=== PATIENT | female | born 1965 | race Caucasian/White ===

== ENCOUNTER 2021-02-11 07:40 | Outpatient (REF) | payer OTHER, SELFPAY ==
--- NOTE | ~2021-02-11 | MM_ITS ---
EXAMINATION: MM SCREENING DIGITAL BREAST TOMOSYNTHESIS, BILATERAL CLINICAL INFORMATION: Screening. Asymptomatic. The lifetime risk of breast cancer based on the Tyrer-Cuzick Model is 8.0%. COMPARISON: Mammography: February 06, 2020 and studies dating back to June 10, 2013 TECHNIQUE: Digital breast tomosynthesis is performed in both the craniocaudal and mediolateral oblique views along with computer-aided detection (CAD). Synthesized 2D images are generated from the tomosynthesis. FINDINGS: The breasts are heterogeneously dense, which may obscure small masses (ACR BI-RADS breast composition Category c). There are no significant masses, abnormal calcifications, or other abnormalities. MM/MM tomosynthesis screening BI IMPRESSION: There are no significant changes from prior study. ASSESSMENT: BI-RADS 1: Negative RECOMMENDATION: Routine annual mammography screening. This patient's information was entered into a reminder system with a target due date for their next mammogram.
== END 2021-02-11 07:41 | disposition home or self-care (01) ==
LOC: HO.MAMMO 07:40
PROVIDERS: PCP Internal Medicine; Visit Provider Internal Medicine
DX: Z12.31 Encounter for screening mammogram for malignant neoplasm of breast (principal)
CPT/HCPCS: 77063; 77067

== ENCOUNTER 2022-02-17 07:51 | Outpatient (REF) | payer OTHER, SELFPAY ==
--- NOTE | ~2022-02-17 | MM_ITS ---
EXAMINATION: MM SCREENING DIGITAL BREAST TOMOSYNTHESIS, BILATERAL CLINICAL INFORMATION: Screening. Asymptomatic. The lifetime risk of breast cancer based on the Tyrer-Cuzick Model is 8%. COMPARISON: Mammography: 02/11/2021, 911, 01/31/2019 TECHNIQUE: Digital breast tomosynthesis is performed in both the craniocaudal and mediolateral oblique views along with computer-aided detection (CAD). Synthesized 2D images are generated from the tomosynthesis. FINDINGS: There are scattered areas of fibroglandular density (ACR BI-RADS breast composition Category b). There are no significant masses, abnormal calcifications, or other abnormalities. Parenchymal pattern is similar to prior studies. There is no developing density or architectural abnormality. The axilla and skin contours are unremarkable. No significant changes. MM/MM tomosynthesis screening BI IMPRESSION: No mammographic evidence of malignancy. ASSESSMENT: BI-RADS 1: Negative RECOMMENDATION: Routine annual mammography screening. This patient's information was entered into a reminder system with a target due date for their next mammogram.
== END 2022-02-17 07:52 | disposition home or self-care (01) ==
LOC: HO.MAMMO 07:51
PROVIDERS: PCP Internal Medicine; Visit Provider Internal Medicine
DX: Z12.31 Encounter for screening mammogram for malignant neoplasm of breast (principal)
CPT/HCPCS: 77063; 77067

== ENCOUNTER → 2023-02-23 08:00 | Outpatient (BNV) | payer OTHER, SELFPAY | PROVIDERS: PCP Internal Medicine; Visit Provider Radiology Diagnostic Radiology | DX: Z12.31 Encounter for screening mammogram for malignant neoplasm of breast (principal) | CPT/HCPCS: 77063; 77067 ==

== ENCOUNTER 2023-02-23 08:04 | Outpatient (REF) | payer OTHER, SELFPAY | END 2023-02-23 08:05 | disposition home or self-care (01) | LOC: HO.MAMMO 08:04 | PROVIDERS: PCP Internal Medicine; Visit Provider Internal Medicine | DX: Z12.31 Encounter for screening mammogram for malignant neoplasm of breast (principal) | CPT/HCPCS: 77063; 77067 ==

== ENCOUNTER 2024-02-29 08:00 | Outpatient (REF) | payer OTHER, SELFPAY ==
--- NOTE | ~2024-02-29 | MM_ITS ---
EXAMINATION: MM SCREENING DIGITAL BREAST TOMOSYNTHESIS, BILATERAL CLINICAL INFORMATION: Screening. Asymptomatic. COMPARISON: Mammography: Comparison is made with available priors TECHNIQUE: Digital breast mammography with tomosynthesis is performed in both the craniocaudal and mediolateral oblique views along with computer-aided detection (CAD). FINDINGS: The breasts are heterogeneously dense, which may obscure small masses (ACR BI-RADS breast composition Category c). There are no significant masses, abnormal calcifications, or other abnormalities. MM/MM tomosynthesis screening BI IMPRESSION: No mammographic evidence of malignancy. ASSESSMENT: BI-RADS BI-RADS 1 - Negative RECOMMENDATION: Routine annual mammography screening. 1 year F/U This examination should not preclude the clinical evaluation of a suspicious palpable abnormality. This patient's information was entered into a reminder system with a target due date for their next mammogram. Electronically signed by: Shannan Paez DO 03/12/2024 12:38 PM EDT
== END 2024-02-29 08:01 | disposition home or self-care (01) ==
LOC: HO.MAMMO 08:00
PROVIDERS: PCP Internal Medicine; Visit Provider Internal Medicine
DX: Z12.31 Encounter for screening mammogram for malignant neoplasm of breast (principal)
CPT/HCPCS: 77063; 77067

== ENCOUNTER → 2024-02-29 08:00 | Outpatient (BNV) | payer OTHER, SELFPAY | PROVIDERS: PCP Internal Medicine; Visit Provider Internal Medicine | DX: Z12.31 Encounter for screening mammogram for malignant neoplasm of breast (principal) | CPT/HCPCS: 77063; 77067 ==

== ENCOUNTER 2024-10-23 09:45 | Outpatient (AMB) | payer OTHER, SELFPAY ==
--- NOTE | 2024-10-23 09:47 | A.OFFPC_ITS ---
Vital Signs 10/23/24 10:19 Height 5 ft 1 in Weight 115 lb 6 oz BMI 21.8 BP 124/70 Blood Pressure Location Lt brachial Position Sitting Respiration 13 Pulse 72 Pulse Source Pulse Oximeter Temp 97.4 F Temp Source Oral Pulse Oximetry (%) 97 Oxygen Delivery Method Room Air Intake Visit Reasons: est care Intake Note: New patient to establish care. Slack Cooper Required: No Allergies No Known Allergies Allergy (Verified 10/23/24 09:49) Medication List - Last Reconciled 10/23/24 by Tonja Julio [facility]- budesonide 90 mcg/actuation (Pulmicort Flexhaler) 0 inhalations inhalation estradiol 0.01%(0.1mg/gram) vaginal levalbuterol tartrate 45 mcg/actuation inhalation metoprolol succinate ER 25 mg PO DAILY omeprazole 40 mg PO DAILY paroxetine HCl 20 mg PO DAILY phenytoin 50 mg PO BID simvastatin 20 mg PO BEDTIME trospium 20 mg PO BID Tobacco use date assessed: 10/23/24 Dental Screening Dental Screen Date: 10/23/24 Did you have a dental visit in the last 12 months?: Yes Did you have a dental problem in the last 6 months where you did not have access to dental care?: No Was dental information given to patient?: Patient has dentist HPI HPI Comments History of Present Illness Details 59 y/o F with paraesophageal hernia, pre diabetes (a1c 5.7% 06/2024), leukopenia chronic, EMIR, colon polyps, dermatitis, allergic rhinits, mild intermittent asthma (PFT 2023), developmental delay, GERD, HLD, HTN, Overactive bladder, LBBB, menopausal, Seizure disorder, family hx colon ca (mom) s/p bladder sling 2017 Fhx: Mom colon ca age 66, PA; Dad prostate Ca, [place], Brother prostate ca Health Maintenance: Colon 02/2020 repeat 3 years, 11/2023 + polyps EGD 11/2023 hiatal hernia Pap 2021 repeat 2025 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 Previous PCP: [facility], records reviewed. Colon November 2024 @ [facility] - Asthma: Managed with Pulmocort and lev othylbuterol. - Seizure Disorder: Controlled with phen ytoin. Needs new neuro referral, old one retired. - GERD: Managed with omeprazole. - Hyperlipidemia: Treated with simvastat in. - Hypertension: Controlled with metoprol ol. - Vaginal Atrophy: Managed with estradio l. - Allergic Rhinitis: Nasacort provides s ome relief; Claritin effective. - Overactive Bladder:Not Managed with tr ospium; urge incontinence noted. S/p bladder sling and botox tx. - Depression: Treated with paroxetine; m ood varies seasonally. would like counseling, denies si/hi. Review of Systems - Respiratory: Reports asthma managed wi th inhalers. - Neurological: Reports seizure disorder controlled with medication. - Gastrointestinal: Reports GERD control led with omeprazole. - Cardiovascular: Reports essential hype rtension managed with medication. - Genitourinary: Reports overactive blad daniel symptoms. - Dermatological: Denies any new skin ra shes or lesions. - Psychiatric: Reports depression with s easonal mood variations. - Endocrine: Denies any new thyroid issu es. - Allergy/Immunology: Reports allergic r hinitis with seasonal exacerbation. Exam Awake alert NAD Glasses Turbinates pale, scant yellow d/c in nares RRR LS with faint exp wheeze througout Mood and affect appropriate Discussion Notes I discussed with the patient the management of her chronic conditions including asthma, seizure disorder, GERD, hyperlipidemia, hypertension, vaginal atrophy, allergic rhinitis, overactive bladder, and depression. We reviewed the current medication regimen and its effectiveness. For her allergic rhinitis, I recommended trying Azesteline nasal spray due to its specificity for allergies. For overactive bladder symptoms, I proposed Gemtesa as a potential alternative, noting the need for prior authorization. The importance of maintaining appointments for preventive care, such as the upcoming colonoscopy, was emphasized. The patient was also instructed on using the patient portal for convenient communication with the office. We discussed follow-up care and the need for regular monitoring of her conditions. Assessment and Plan 1. Asthma - Continue Pulmocort and levothylbuterol . 2. Seizure Disorder - Continue phenytoin. - Neurology referral. 3. GERD - Continue omeprazole. 4. Hyperlipidemia - Continue simvastatin. - Cholesterol panel in December. 5. Essential Hypertension - Continue metoprolol. 6. 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 Allergic Rhinitis - Azesteline nasal spray prescribed. - Continue Claritin as needed. 8. Overactive Bladder - Start Gemtesa pending prior authorizat ion. - Continue trospium until approved. 9. Depression - Continue paroxetine. - Counseling referral placed. Patient Instructions - Continue all current medications as pr escribed. - Use Azesteline nasal spray for allergi c rhinitis. - Monitor symptoms and report any change s. - Use the patient portal for communicati on with the office. - Attend scheduled colonoscopy appointme nt. - Follow up with neurology and for futur e lab work as advised. RTO for CPE with labs in Dec, PRN Consent Patient was informed and verbally consented to the use of an ambient scribe for clinic note documentation during this visit. Total time spent caring for the patient today was 45 minutes. This includes time spent before the visit reviewing the chart, time spent during the visit, and time spent after the visit on documentation, reviewing laboratory results, diagnostic imaging, medications, performing a medically necessary evaluation, counseling on diagnoses, care coordination, ordering appropriate tests, ordering appropriate medications, review of tests performed by other providers, reporting test results with the patient, communication with other healthcare providers. [facility] Medical History (Updated 10/23/24 @ 11:00 by ITARA Hall-NANCY) Anxiety Arthritis Asthma Epilepsy GERD (gastroesophageal reflux disease) High cholesterol Incontinence Seizure Sinusitis Surgical History (Updated 10/23/24 @ 07:08 by TIARA Hall-NANCY) History of bladder surgery (~2017) History of colonoscopy (~2023) Family History (Updated 10/23/24 @ 10:30 by Helen Hair MA) Sister Asthma HTN (hypertension) Brother Asthma HTN (hypertension) Prostate cancer Mother HTN (hypertension) Cardiovascular disease Colon cancer Father HTN (hypertension) Cardiovascular disease Maternal Grandmother HTN (hypertension) Cardiovascular disease Paternal Grandfather HTN (hypertension) Cardiovascular disease Prostate cancer Maternal Grandfather HTN (hypertension) Cardiovascular disease Paternal Grandmother HTN (hypertension) Cardiovascular disease Social History (Updated 10/23/24 @ 10:23 by Helen Hair MA) Household Members: None Both parents involved: No Caregiver staying overnight: No Housing: House Are you a primary care transitions nurse to a significant other at home: No Do you presently have visiting nurse or other home services: No 75 years or older and lives alone: No Alcohol intake: never Patient Tobacco Use Status: Never used Tobacco e-Cigarette/Vaping Use: Never Used Second Hand Smoke Exposure: No service: No Current occupational status: employed 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 1. Little interest or pleasure in doing things: not at all 2. Feeling down, depressed, or hopeless: not at all 3. Trouble falling or staying asleep, or sleeping too much: not at all 4. Feeling tired or having little energy: not at all 5. Poor appetite or overeating: not at all 6. Feeling bad about yourself - or that you are a failure or have let yourself or your family down: not at all 7. Trouble concentrating on things, such as reading the newspaper or watching television: not at all 8. Moving or speaking so slowly that other people could have noticed. Or the opposite - being so fidgety or restless that you have been moving around a lot more than usual: not at all 9. Thoughts that you would be better off or of hurting yourself in some way: not at all Total score: 0 Depression Screening Interpretation: Negative Depression Screening Done: Yes 38985 - PHQ-9 Billing: Yes Source: Developed by Drs. Shahzad Vargas, Sadie Richard, Rd Sullivan and colleagues, with an educational emmett from [employer]. Thrive Questionnaire Date Thrive assessed: 10/23/24 I am a: Patient What is your living situation today?: I have a steady place to live Within the past 12 months, did the food you bought not last and you didn't have the money to get more?: Never true Within the past 12 months, did you worry whether your food would run out before you got money to buy more?: Never true Do you have trouble paying for medicines?: No Do you have trouble getting transportation to medical appointments?: No Do you have trouble paying your heating and electricity bill?: No Do you have trouble taking care of your child, family member or friend?: No Do you have trouble with day-to-day activities such as bathing, preparing meals, shopping, managing finances, etc.?: No Are you currently unemployed and looking for a job?: No Are you interested in more education?: No Please select the resources that you would like help with: None Currently or been in a relationship where the following occur: No concerns reported THRIVE Score: 0 AUDIT C Alcohol Use Questionnaire (AUDIT-C) 1. How often do you have a drink containing alcohol?: Never 3. How often do you have six or more drinks on one occasion?: Never Total Score: 0 Score Reviewed/Action Taken: Yes EMIR-7 AMB Questionnaire EMIR-7 Date EMIR - 7 assessed: 10/23/24 Feeling nervous, anxious, or on edge: 0 = Not at all Not being able to stop or control worryin = Not at all Worrying too much about different things: 0 = Not at all Trouble relaxin = Not at all Being so restless that it is hard to sit still: 0 = Not at all Becoming easily annoyed or irritable: 0 = Not at all Feeling afraid as if something awful might happen: 0 = Not at all Total EMIR-7 score (0-4 normal; 5-9 mild; 10-14 moderate; 15-21 severe): 0 Source: Developed by Drs. Shahzad Vargas, Sadie Richard, Rd Sullivan and colleagues, with an educational emmett from [employer]. EMIR-7 Assessment Billing EMIR-7 Assessment Tool: EMIR-7 Assessment 17586 ACT Questionnaire In the past 4 weeks, how much of the time did your asthma keep you from getting as much done at work, school or at home?: None of the time During the past 4 weeks, how often have you had shortness of breath?: Not at all During the past 4 weeks, how often did your asthma symptoms wake you up at night or earlier than usual in the morning?: Not at all During the past 4 weeks, how often have you had to use your rescue inhaler or nebulizer medication?: Not at all How would you rate your asthma control during the past 4 weeks?: Completely controlled Score: 25 Physical exam (Primary Care) Vital Signs: Last Vital Signs Temp 97.4 F 10/23/24 10:19 Pulse 72 10/23/24 10:19 Resp 13 10/23/24 10:19 BP 124/70 10/23/24 10:19 Pulse Ox 97 10/23/24 10:19 Oxygen Delivery Method Room Air 10/23/24 10:19 BMI result Body Mass Index 21.8 Tobacco/Smoking Status: Tobacco use Status Tobacco use date assessed 10/23/24 10/23/24 09:49 Patient Tobacco Use Status Never used Tobacco 10/23/24 10:23 e-Cigarette/Vaping Use Never Used 10/23/24 10:23 PHQ-9: PHQ-9 Score PHQ-9: Total score 0 10/23/24 09:49 Depression Screening Interpretation: Negative Thrive Assessment: Date of Thrive Assessment Date Thrive assessed 10/23/24 10/23/24 09:49 Currently or been in a relationship where the following occur: No concerns reported Coding Level of Care Code New Pt Level 4 (64141) Complex EM visit Add On G2211 Diagnoses Encounter to establish care Z76.89 Seasonal allergies J30.2 Seizure disorder G40.909 EMIR (generalized anxiety disorder) F41.1 Prediabetes R73.03 Mixed hyperlipidemia E78.2 Hyperlipidemia type: mixed hyperlipidemia Primary hypertension I10 Hypertension type: primary hypertension Chronic GERD K21.9 Family history of colon cancer Z80.0 Mild intermittent asthma in adult without complication J45.20 OAB (overactive bladder) N32.81 Mixed stress and urge urinary incontinence N39.46 Urinary Incontinence type: mixed stress and urge incontinence Additional Codes EMIR-7 Assessment Billing - EMIR-7 Assessment Tool: EMIR-7 Assessment 96357 ([id number]) PHQ-9 - 37201 - PHQ-9 Billing: Yes ([id number]) Assessment & Plan Assessment & Plan (1) Encounter to establish care: Code(s): Z76.89 - Persons encountering health services in other specified circumstances (2) Seasonal allergies: Code(s): J30.2 - Other seasonal allergic rhinitis Category: Medical (3) Seizure disorder: Comment: last sz in 1960's Code(s): G40.909 - Epilepsy, unspecified, not intractable, without status epilepticus Category: Medical (4) EMIR (generalized anxiety disorder): Code(s): F41.1 - Generalized anxiety disorder Category: Medical (5) Prediabetes: Code(s): R73.03 - Prediabetes Category: Medical (6) HLD (hyperlipidemia): Code(s): E78.5 - Hyperlipidemia, unspecified Category: Medical Qualifiers: Hyperlipidemia type: mixed hyperlipidemia Qualified Code(s): E78.2 - Mixed hyperlipidemia (7) HTN (hypertension): Code(s): I10 - Essential (primary) hypertension Category: Medical Qualifiers: Hypertension type: primary hypertension Qualified Code(s): I10 - Essential (primary) hypertension (8) Chronic GERD: Code(s): K21.9 - Gastro-esophageal reflux disease without esophagitis Category: Medical (9) Family history of colon cancer: Comment: MOM colon 11/2024 at [facility] scheduled Code(s): Z80.0 - Family history of malignant neoplasm of digestive organs Category: Medical (10) Mild intermittent asthma in adult without complication: Comment: PFT 2023 Code(s): J45.20 - Mild intermittent asthma, uncomplicated Category: Medical (11) OAB (overactive bladder): Code(s): N32.81 - Overactive bladder Category: Medical (12) Urinary incontinence: Code(s): R32 - Unspecified urinary incontinence Category: Medical Qualifiers: Urinary Incontinence type: mixed stress and urge incontinence Qualified Code(s): N39.46 - Mixed incontinence Plan . Orders: Orders Complete Blood Count no Diff 12/26/24 E78.5 - Hyperlipidemia, unspecified, I10 - Essential (primary) hypertension, R73.03 - Prediabetes Hemoglobin A1c 12/26/24 E78.5 - Hyperlipidemia, unspecified, I10 - Essential (primary) hypertension, R73.03 - Prediabetes Vitamin D 25-OH Total 12/26/24 E78.5 - Hyperlipidemia, unspecified, I10 - Essential (primary) hypertension, R73.03 - Prediabetes Comprehensive Met. Panel 12/26/24 E78.5 - Hyperlipidemia, unspecified, I10 - Essential (primary) hypertension, R73.03 - Prediabetes Lipid Panel 12/26/24 E78.5 - Hyperlipidemia, unspecified, I10 - Essential (primary) hypertension, R73.03 - Prediabetes Microalbumin, Random (w Creat) 12/26/24 E78.5 - Hyperlipidemia, unspecified, I10 - Essential (primary) hypertension, R73.03 - Prediabetes TSH reflex Free T4 12/26/24 E78.5 - Hyperlipidemia, unspecified, I10 - Essential (primary) hypertension, R73.03 - Prediabetes Vitamin B12 and Folate 12/26/24 E78.5 - Hyperlipidemia, unspecified, I10 - Essential (primary) hypertension, R73.03 - Prediabetes Referrals Neurology Referral G40.909 - Epilepsy, unspecified, not intractable, without status epilepticus Nurse Navigator Referral F41.1 - Generalized anxiety disorder Medications: New azelastine administer into each nostril 1 spray intranasal BID 30 mL 12RF vibegron (Gemtesa) 75 mg PO DAILY 90 tabs 2RF Patient Instructions: Intranasal products are first-line for persistent symptoms Suggest any OTC single-ingredient nasal steroid (fluticasone, etc) first...all work and cost similarly. They?re shown to be the most effective...can be used long-term...and some are approved down to age 2. Recommend starting 1-2 weeks before hay fever symptoms usually begin...since they may take several weeks for optimal results. Guide patients to pollen- tracker websites and apps to help them stay ahead. Advise starting nasal steroids at max dosing based on age...then tapering dosing weekly once symptoms are relieved. Turn to nasal antihistamines (azelastine, etc) as monotherapy if nosebleeds from steroids are a concern...or as a nasal steroid add-on. Warn patients reaching for nasal decongestants (oxymetazoline, etc). They work quickly, but shouldn?t be used alone for chronic hay fever symptoms...due to rebound congestion after several days of use. Teach proper use of nasal sprays. For instance, blow nose before use...and point the head slightly downward and aim the sprayer to the SIDE of the nostril to help prevent stinging and bitter taste. Recommend saline sprays or sinus rinse kits if patients want a nondrug option. Reinforce using distilled or sterile water...tap water can be irritating and has been linked to rare amoeba brain infections. Walk-In Care (Urgent Care): We Make it Easy Walk-in for urgent medical issues such as: ? Seasonal Allergies ? Insect Bites ? Cough ? Diarrhea ? Acute Asthma Attacks ? Back, Knee or Joint Pain ? Ear Infection ? Fever without a Rash ? Headaches ? Nausea ? [place] Eye, Rash or Skin Irritation ? Sore Throat ? Sports Physicals ? Vomiting Most insurances are accepted. Patients do not need to be part of the [facility] to seek care at the walk-in clinic. Locations [address] [facility] [place] [address] ? [phone] [facility] Walk-In Care in [place] provides services to ages 18 and over. Open Sunday-Sunday: 8 a.m. to 5 p.m. and Sunday: 9 a.m. to 3 p.m.* *Hours may vary due to staffing availability. To confirm Walk-In Care hours in [place], please call [phone]. [address] [place] [address] ? [phone] [facility] Walk-In Care in [place] provides services to ages 12 and over. Open Sunday-Sunday: 8 a.m. to 5 p.m. Hours may vary due to staffing availability. To confirm Walk-In Care hours in [place], please call [phone]. LABORATORY SERVICES: [facility] ? Primary Location [address] [place] [address] Sunday through Sunday 6:00 AM ? 5:00 PM Sunday 7:00 AM ? 11:00 AM* [phone] The [facility] is centrally located near the front entrance of the [facility] for easy outpatient access. Convenient parking is provided for outpatients. *Hours may vary due to staffing availability. To confirm Laboratory hours for any location, please call [phone]. Offsite Location For your convenience, we offer offsite laboratory draw stations at the following locations: [address] [place] [address] ? [facility] [address], [address] Sunday through Sunday 7:30 AM ? 1:00 PM* [phone] *Hours may vary due to staffing availability. To confirm Laboratory hours for any location, please call [phone]. [place] ? [address] Sunday through Sunday 6:00 AM ? 3:30 PM* Sunday 6:30 AM ? 3 PM* [phone] *Hours may vary due to staffing availability. To confirm Laboratory hours for any location, please call [phone] [facility] Sunday through Sunday 7:30 AM ? 4:00 PM* [phone] *Hours may vary due to staffing availability. To confirm Laboratory hours for any location, please call [phone]. [address] [facility] Sunday through 9:00 AM ? 4:00 PM* *Hours may vary due to staffing availability. To confirm Laboratory hours for any location, please call [phone]. Appointments are not necessary. Walk-ins are welcome. Like all the departments throughout the [facility], our Lab undergoes frequent reviews to ensure the quality and accuracy of test results, and our sta takes special pride in its status as a nationally accredited facility. Patient Portal: ONE PATIENT. ONE RECORD. BETTER CARE. [facility] has a fully integrated, cutting- edge mobile electronic health information system that has revolutionized the way we care for our patients and manage our organization. This system improves communication and coordination enabling us to provide safe, higher-quality care, and an overall positive experience for staff and patients. Our first priority, as always, is to deliver the highest quality care possible. The system is running in the background supporting that priority. This portal is for all [facility] services and practices. If you are experiencing any technical difficulties with enrolling or logging into the Patient Portal please complete the [facility] Patient Portal Technical Support Form. [facility] now offers a new secure on-line interactive tool for patients to review their health information ? Patient Portal. This interactive web portal will enable patients and their families to take an active role in their care by providing easy, secure access to their health information via the internet. The Patient Portal provides patients with instant access to their health information, including laboratory results, medications, allergies, demographic information, visit history, and more. In addition to managing their own care, parents and health care proxies with authorized consent will appreciate the ability to access the records of those individuals for whom they provide care. Please note: if you wish to gain access (Proxy) to another patient?s portal, you will be required to come to the Medical Records Department in person at [facility]. Both the patient giving proxy access and the proxy will need to provide photo identification and complete the appropriate authorization. The Patient Portal also allows track their appointments online. The [facility] Patient Portal also saves patients time by allowing them to submit updates to their demographic and contact information prior to their visits. Portal email notifications will also alert patients to any new activity on their portal, such as test results and new appointments. In order to initially enroll in the [facility] Patient Portal, you will need to enter some required information including the following: ? your [facility] Medical Record number ? your personal home email address ? name ? date of Please note: In order to enroll in the [facility] Patient Portal, we need to have your email address on file in your electronic medical record. The email address needs to be specific for one person (yourself) in order for your Portal enrollment to be successful. You can update your email address in person with our Registration staff when you are registering for a hospital visit. Otherwise, you will need to come to the Health Information Management (Medical Records) Department at [facility]. We are open from Sunday ? Sunday from 7:30 a.m. ? 4:30 p.m. You will be required to present a photo id. Once you have successfully enrolled in the Patient Portal, you will receive a one-time user id and password for the Portal, sent to your email address. This will allow you to log into the Patient Portal within 99 hrs and reset your own logon id and password, and define personal security questions. Once your permanent login and password have been set, you can log into the [facility] Patient Portal at any time via the blue button above or from the Portal Logon button on any page of the [facility] website. [facility] encourage all of our patients to enroll in Patient Portal as it presents a valuable opportunity for patients and their families to actively participate in their care and stay healthy Welcome to [facility]. We look forward to working with you.
[2024-10-23 10:19] VITALS: BP 124/70; PULSE 72; RESP 13; TEMP 36.3; O2SAT 97; BMI 21.8
== END 2024-10-23 10:56 | disposition home or self-care (01) ==
LOC: HO.HMCFM 09:46
PROVIDERS: PCP Nurse Practitioner Family; Visit Provider Nurse Practitioner Family
DX: Z76.89 Persons encountering health services in other specified circumstances (principal); J30.2 Other seasonal allergic rhinitis; G40.909 Epilepsy, unspecified, not intractable, without status epilepticus; F41.1 Generalized anxiety disorder; R73.03 Prediabetes; E78.2 Mixed hyperlipidemia; I10 Essential (primary) hypertension; K21.9 Gastro-esophageal reflux disease without esophagitis; Z80.0 Family history of malignant neoplasm of digestive organs; J45.20 Mild intermittent asthma, uncomplicated; N32.81 Overactive bladder; N39.46 Mixed incontinence

== ENCOUNTER → 2024-10-23 09:45 | Outpatient (BNVA) | payer OTHER, SELFPAY | PROVIDERS: PCP Nurse Practitioner Family; Visit Provider Nurse Practitioner Family | DX: Z76.89 Persons encountering health services in other specified circumstances (principal); J30.2 Other seasonal allergic rhinitis; G40.909 Epilepsy, unspecified, not intractable, without status epilepticus; F41.1 Generalized anxiety disorder; R73.03 Prediabetes; E78.2 Mixed hyperlipidemia; I10 Essential (primary) hypertension; K21.9 Gastro-esophageal reflux disease without esophagitis; J45.20 Mild intermittent asthma, uncomplicated; N32.81 Overactive bladder; N39.46 Mixed incontinence; Z80.0 Family history of malignant neoplasm of digestive organs | CPT/HCPCS: 96127; 96160 ==

== ENCOUNTER → 2024-10-30 14:25 | Outpatient (BNVA) | payer OTHER, SELFPAY | PROVIDERS: PCP Nurse Practitioner Family ==

== ENCOUNTER 2024-11-24 07:43 | Outpatient (AMB) | payer OTHER, SELFPAY ==
[2024-11-24 07:50] VITALS: BP 112/72; PULSE 73; O2SAT 97; BMI 22.2
--- NOTE | 2024-11-24 07:50 | MHC.OFFVIS ---
Vital Signs 11/24/24 07:50 Height 5 ft 1 in Weight 117 lb 8 oz BMI 22.2 BP 112/72 Blood Pressure Location Rt brachial Position Sitting Pulse 73 Pulse Source Pulse Oximeter Pulse Oximetry (%) 97 Oxygen Delivery Method Room Air Intake Visit Reasons: INP-Epilepsy Intake Note: Patient referred in-house for epilepsy unspecified. Allergies No Known Allergies Allergy (Verified 11/24/24 07:51) Medication List - Last Reconciled 11/24/24 by Sonia Reyna MD azelastine 1 spray intranasal BID budesonide 90 mcg/actuation (Pulmicort Flexhaler) 0 inhalations inhalation estradiol 0.01%(0.1mg/gram) vaginal levalbuterol tartrate 45 mcg/actuation inhalation metoprolol succinate ER 25 mg PO DAILY omeprazole 40 mg PO DAILY paroxetine HCl 20 mg PO DAILY phenytoin 50 mg PO BID simvastatin 20 mg PO BEDTIME trospium 20 mg PO BID vibegron (Gemtesa) 75 mg PO DAILY HPI Comments Details: 59y/o female with cerebral palsy comes for further management of her seizure disorder .Her neurologist Dr. Zarate retired and she is transferring care here. Her last seizures was in 191 when she was 1 years old and she does not know the type of seizures. she is on phenytoin 50mg bid . The patient did not want to stop medications. Her CP has affected her motor skills. 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 she reports neck pain and also sleep difficulty - snores with frequent arousals. she reports abnormal facial movements that are worsening and can be painful [facility] Medical History (Updated 11/24/24 @ 08:27 by Sonia Reyna MD) Abnormal involuntary movements Hypersomnia Snoring Neck pain Cerebral palsy Anxiety Epilepsy Seizure Incontinence GERD (gastroesophageal reflux disease) High cholesterol Arthritis Sinusitis Asthma Surgical History History of bladder surgery (~2017) History of colonoscopy (~2023) Family History Sister Asthma HTN (hypertension) Brother Asthma HTN (hypertension) Prostate cancer Mother HTN (hypertension) Cardiovascular disease Colon cancer Father HTN (hypertension) Cardiovascular disease Maternal Grandmother HTN (hypertension) Cardiovascular disease Paternal Grandfather HTN (hypertension) Cardiovascular disease Prostate cancer Maternal Grandfather HTN (hypertension) Cardiovascular disease Paternal Grandmother HTN (hypertension) Cardiovascular disease Social History Household Members: None Both parents involved: No Caregiver staying overnight: No Housing: House Are you a primary child care sitter to a significant other at home: No Do you presently have visiting nurse or other home services: No 75 years or older and lives alone: No Alcohol intake: never Patient Tobacco Use Status: Never used Tobacco e-Cigarette/Vaping Use: Never Used Second Hand Smoke Exposure: No service: No Current occupational status: employed 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 Cognitive needs: No Hearing needs: No Vision needs: Yes (wear glasses) Physical Exam Vital Signs: Last Vital Signs Pulse 73 11/24/24 07:50 BP 112/72 11/24/24 07:50 Pulse Ox 97 11/24/24 07:50 Oxygen Delivery Method Room Air 11/24/24 07:50 BMI result Body Mass Index 22.2 Const General: cooperative and comfortable Nutritional Appearance: average body habitus Orientation/consciousness: patient oriented x3 Neuro Other: abnormal choreathetoid movements involving face neck hand and milde rin legs spastic paraparesis decreased hand movements Neck- antecollis speech slurred,dysarthric gait- flexed at knees - spastic General: patient oriented x3 and moves all extremities Cranial nerves: Yes Facial sensation intact/muscles of mastication intact, Yes Bilaterally intact EOM present, Yes Normal facial strength present and Yes Midline tongue present Cognition (Neuro): normal cognition Speech: Other speech findings present (Neuro) Motor exam (neuro): 5/5 motor strength present throughout and Other motor observations present (tone - increased tone in all extremities) Deep tendon reflexes (DTR's): Right triceps reflex intensity grade: 1+, Left triceps reflex intensity grade: 1+, Rt Biceps (C5, C6): 1+, Left biceps reflex intensity grade: 1+, Right brachioradialis reflex intensity grade: 1+, Left brachioradialis reflex intensity grade: 1+, Right patellar reflex intensity grade: 1+ and Left patellar reflex intensity grade: 1+ Coordination: [id number] test normal Assessment & Plan Assessment & Plan (1) Cerebral palsy: Code(s): G80.9 - Cerebral palsy, unspecified Category: Medical Qualifiers: Cerebral palsy type: athetoid Qualified Code(s): G80.3 - Athetoid cerebral palsy (2) Seizure disorder: Comment: last sz in 1959's Code(s): G40.909 - Epilepsy, unspecified, not intractable, without status epilepticus Category: Medical (3) Abnormal involuntary movements: Code(s): R25.9 - Unspecified abnormal involuntary movements Category: Medical (4) Snoring: Code(s): R06.83 - Snoring Category: Medical (5) Hypersomnia: Code(s): G47.10 - Hypersomnia, unspecified Category: Medical (6) Neck pain: Code(s): M54.2 - Cervicalgia Category: Medical Plan Continue phenytoin 50mg bid- patient does not want to stop anticonvulsants XR neck to evaluate her neck pain PT for neck and OT for hand MRI brain EEG to evaluate Home sleep test to r/o sleep apnea she may benefit form muscle relaxer - will consider next visit. 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
== END 2024-11-24 08:36 | disposition home or self-care (01) ==
LOC: HO.HSMS 07:44
PROVIDERS: PCP Nurse Practitioner Family; Visit Provider Psychiatry & Neurology Neurology
DX: G80.3 Athetoid cerebral palsy (principal); G40.909 Epilepsy, unspecified, not intractable, without status epilepticus; R25.9 Unspecified abnormal involuntary movements; R06.83 Snoring; G47.10 Hypersomnia, unspecified; M54.2 Cervicalgia
CPT/HCPCS: 99204

== ENCOUNTER 2024-11-26 10:36 | Outpatient (REF) | payer OTHER, SELFPAY ==
--- NOTE | ~2024-11-26 | XR_ITS ---
EXAMINATION: XR CERVICAL SPINE CLINICAL INFORMATION: M54.2 - Cervicalgia COMPARISON: None available. TECHNIQUE: 3 views of the cervical spine were obtained. FINDINGS: There is no prevertebral soft tissue edema. Nuchal ligament ossification is present between C6-C7 spinous process. C2-3 demonstrates subtle anterolisthesis. C4-5 demonstrates mild disc space narrowing. C5-6 demonstrates interest right and space narrowing. C6-7 demonstrates moderate disc space narrowing and anterior osteophytes. C7-T1 images mild disc space narrowing and facet sclerosis. Uncovertebral osteophytes are evident throughout the cervical spine, more advanced in the C2 4 C4-5 levels. XR/XR cervical spine 3V IMPRESSION: Degenerative changes Electronically signed by: Rafiq Bowen MD 11/26/2024 04:00 PM EDT
== END 2024-11-26 10:37 | disposition home or self-care (01) ==
LOC: HO.XRAY 10:36
PROVIDERS: PCP Nurse Practitioner Family; Visit Provider Psychiatry & Neurology Neurology
DX: M54.2 Cervicalgia (principal)
CPT/HCPCS: 72040

== ENCOUNTER → 2024-11-26 10:42 | Outpatient (BNV) | payer OTHER, SELFPAY | PROVIDERS: PCP Nurse Practitioner Family; Visit Provider Radiology Diagnostic Radiology | DX: M54.2 Cervicalgia (principal) | CPT/HCPCS: 72040 ==

== ENCOUNTER 2024-12-07 09:26 | Outpatient (REF) | payer OTHER, SELFPAY ==
--- NOTE | ~2024-12-07 | MR_ITS ---
CLINICAL HISTORY: G80.9 - Cerebral palsy, unspecified MR Brain without gadolinium Comparison: None provided Findings: No restricted diffusion. No intra-axial mass or hemorrhage. No midline shift. No hydrocephalus. Vascular flow voids are intact. Few tiny foci of T2 signal prolongation within the subcortical white matter, for example axial FLAIR 16 within the left frontal lobe. Orbital contents are unremarkable. The sinuses and mastoid air cells are clear. No focal bone lesion. IMPRESSION: No acute findings. Minimal, age-appropriate white matter disease. This document has been electronically signed by: Saleem Reed MD on 12/09/2024 12:34:17
== END 2024-12-07 09:27 | disposition home or self-care (01) ==
LOC: HO.MRI 09:26
PROVIDERS: PCP Nurse Practitioner Family; Visit Provider Psychiatry & Neurology Neurology
DX: G80.9 Cerebral palsy, unspecified (principal); G40.909 Epilepsy, unspecified, not intractable, without status epilepticus
CPT/HCPCS: 70551

== ENCOUNTER → 2024-12-07 09:31 | Outpatient (BNV) | payer OTHER, SELFPAY | PROVIDERS: PCP Nurse Practitioner Family; Visit Provider Radiology Vascular & Interventional Radiology | DX: G80.9 Cerebral palsy, unspecified (principal) | CPT/HCPCS: 70551 ==

== ENCOUNTER → 2025-01-05 16:00 | Outpatient (REF) | payer OTHER, SELFPAY | LOC: HO.SL 16:00 | PROVIDERS: PCP Nurse Practitioner Family; Visit Provider Psychiatry & Neurology Neurology | DX: R06.83 Snoring (principal); G47.10 Hypersomnia, unspecified | CPT/HCPCS: 95806 ==

== ENCOUNTER → 2025-01-05 16:08 | Outpatient (BNV) | payer OTHER, SELFPAY | PROVIDERS: PCP Nurse Practitioner Family; Visit Provider Psychiatry & Neurology Neurology | DX: R06.83 Snoring (principal) | CPT/HCPCS: 95806 ==

== ENCOUNTER 2025-01-12 08:26 | Outpatient (REF) | payer OTHER, SELFPAY ==
[2025-01-12 11:22] LABS: Hematocrit 39.4 % (37.0-47.0); Hemoglobin 12.8 g/dl (12.0-16.0); Mean Corpuscular HGB Conc 32.5 g/dl (31.0-35.0); Mean Corpuscular Hemoglobin 29.5 pg (27.0-33.0); Mean Corpuscular Volume 90.8 fL (80.0-98.0); NRBC Abs Auto 0.000 X10*3/uL (0.0-0.012); NRBC Pct Auto 0.0 /100WBC (0.0-0.2); Platelet Count 225 X10*3/uL (160-400); Red Blood Count 4.34 X10*6/uL (4.20-5.50); White Blood Count 4.3 X10*3/uL (4.8-10.8)
[2025-01-12 12:00] LABS: Alanine Aminotransferase 21 U/L (0-31); Albumin Level 4.6 g/dL (3.5-5.0); Alkaline Phosphatase 80 U/L (39-117); Anion Gap 10 (12-20); Aspartate Amino Transferase 29 U/L (5-31); Blood Urea Nitrogen 13 mg/dL (9-16); Calcium 9.3 mg/dL (8.4-10.2); Carbon Dioxide 31 mmol/L (22-29); Chloride 105 mmol/L (96-108); Cholesterol 188 mg/dL (<200); Estimated Glomerular Filt Rate > 60; HDL Cholesterol 61 mg/dL (>40); Potassium 4.3 mmol/L (3.3-5.1); Sodium 142 mmol/L (135-145); Total Protein 7.2 g/dL (6.5-8.0); Triglycerides 71 mg/dL (<150)
[2025-01-12 12:08] LABS: Hemoglobin A1C 124.8885 umol/L; Total Hemoglobin (HGBA1C) 3504.7488 umol/L
[2025-01-12 12:14] LABS: Folate 9.4 ng/mL (> or = 4.0); Vitamin B12 410 pg/mL (200-900)
== END 2025-01-12 08:27 | disposition home or self-care (01) ==
LOC: HO.WFDLDS 08:26
PROVIDERS: Visit Provider Nurse Practitioner Family
DX: R73.03 Prediabetes (principal); I10 Essential (primary) hypertension; E78.5 Hyperlipidemia, unspecified
CPT/HCPCS: 36415; 80053; 80061; 82306; 82607; 82746; 83036; 84443; 85027

== ENCOUNTER 2025-01-15 14:36 | Outpatient (REF) | payer OTHER, SELFPAY | END 2025-01-15 14:37 | disposition home or self-care (01) | LOC: HO.LNP 14:36 | PROVIDERS: Visit Provider Nurse Practitioner Family | DX: R73.03 Prediabetes (principal); I10 Essential (primary) hypertension; E78.5 Hyperlipidemia, unspecified | CPT/HCPCS: 82043; 82570 ==

== ENCOUNTER 2025-01-21 07:47 | Outpatient (AMB) | payer OTHER, SELFPAY ==
--- NOTE | 2025-01-21 07:52 | MHC.PC.OV ---
Vital Signs 01/21/25 07:57 Height 5 ft 1 in Weight 121 lb 6 oz BMI 22.9 BP 124/70 Blood Pressure Location Lt brachial Position Sitting Respiration 12 Pulse 65 Pulse Source Pulse Oximeter Temp 97.1 F Temp Source Oral Pulse Oximetry (%) 97 Oxygen Delivery Method Room Air Intake Visit Reasons: 3 mo CPE labs 1 week before Intake Note: CPE and review labs. Patient c/o cough and sinus pressure more than a month and not getting better. 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 Allergies No Known Allergies Allergy (Verified 01/21/25 08:21) Medication List - Last Reconciled 01/21/25 by Tonja Julio, [facility]- azelastine 1 spray intranasal BID budesonide 90 mcg/actuation (Pulmicort Flexhaler) 0 inhalations inhalation estradiol 0.01%(0.1mg/gram) vaginal levalbuterol tartrate 45 mcg/actuation inhalation metoprolol succinate ER 25 mg PO DAILY omeprazole 40 mg PO DAILY paroxetine HCl 20 mg PO DAILY phenytoin 50 mg PO BID simvastatin 20 mg PO BEDTIME trospium 20 mg PO BID vibegron (Gemtesa) 75 mg PO DAILY Tobacco use date assessed: 01/21/25 Dental Screening Dental Screen Date: 01/21/25 Did you have a dental visit in the last 12 months?: Yes Did you have a dental problem in the last 6 months where you did not have access to dental care?: No Was dental information given to patient?: Patient has dentist HPI HPI Comments History of Present Illness Details 59 y/o F with paraesophageal hernia, prediabetes (a1c 5.7% 06/2024), leukopenia chronic, EMIR, colon polyps, dermatitis, allergic rhinits, mild intermittent asthma (PFT 2023), developmental delay, GERD, HLD, HTN, Overactive bladder, LBBB, menopausal, Seizure disorder, family hx colon ca (mom) s/p bladder sling 2017 Fhx: Mom colon ca age 66, [place]; Dad prostate Ca, [place], Brother prostate ca Health Maintenance: Colon 02/2020 repeat 3 years, 11/2023 + polyps (2024 1 polyp, repeat 5 years - [facility])* EGD 11/2023 hiatal hernia Pap 2021 repeat 2025 DEXA has never had one; ordered today. 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 Tavon November 2024 @ [facility] - Asthma: Managed with Pulmocort and levothylbuterol. Increase cough and wheezing. - Seizure Disorder: Controlled with phenytoin. Active w/ neuro [facility]. - GERD: Managed with omeprazole. - Hyperlipidemia: Treated with simvastatin. - Hypertension: Controlled with metoprolol. - Vaginal Atrophy: Managed with estradiol. - Allergic Rhinitis: Azestaline has helped; Claritin effective. - Overactive Bladder: Gemtasa has helped, S/p bladder sling and botox tx. - Depression: Treated with paroxetine; active w/ counseling, denies si/hi. Review of Systems - Respiratory: Reports asthma managed with inhalers. - Neurological: Reports seizure disorder controlled with medication. - Gastrointestinal: Reports GERD controlled with omeprazole. - Cardiovascular: Reports essential hypertension managed with medication. - Genitourinary: Reports overactive bladder symptoms. - Dermatological: Denies any new skin rashes or lesions. - Psychiatric: Reports depression with seasonal mood variations. - Endocrine: Denies any new thyroid issues. - Allergy/Immunology: Reports allergic rhinitis with seasonal exacerbation. Physical Exam General: Well developed, well nourished, in no acute distress. Appears stated age. Head: Normocephalic, atraumatic. Eyes: Pupils are equal, round and reactive to light and accommodation. Conjunctivae are clear. Vision grossly normal. Ears: TMs clear AU, EACS WNL Nose: Patent, without discharge. Turbinates pale and edematous Neck: Supple, no adenopathy or thyromegaly. Breast: Edu on SBE Lungs: Ins/exp wheezes bilaterally. No rales, rhonchi or wheeze noted. Good air flow in all gross. Heart: Regular rate and rhythm. No murmurs, click, rubs or gallops are noted. Abdomen: Bowel sounds present in all quadrants. The abdomen is soft, nontender, with no masses or organomegaly noted. No hernias are noted. : Deferred. Reviewed recommendations for routine HELP DESK ADMINISTRATOR Pulses: Peripheral pulses are equal and palpable bilaterally. Extremities: No clubbing, cyanosis nor edema is noted. Neurologic: Gait and station normal. Cranial Nerves 2-12 intact. Motor strength grossly symmetrical and intact. No sensory loss. Balance normal. Mild spasticity r/t CP Skin: No rashes, ulcers, or lesions noted. Turgor is good. Skin color is good. Hair and nails are without abnormalities. Psych: Normal eye contact, affect and mood appropriate, and normal interactions. Patient is alert and appropriate to context. Mood is good on current medications. Labs 12/2024, reviewed w/ her Discussion Notes I discussed with the patient the management of her chronic conditions including asthma, seizure disorder, GERD, hyperlipidemia, hypertension, vaginal atrophy, allergic rhinitis, overactive bladder, and depression. We reviewed the current medication regimen and its effectiveness. For her allergic rhinitis, I recommended trying Azesteline nasal spray due to its specificity for allergies. For overactive bladder symptoms, I proposed Gemtesa as a potential alternative, noting the need for prior authorization. The importance of maintaining appointments for preventive care, such as the upcoming colonoscopy, was emphasized. The patient was also instructed on using the patient portal for convenient communication with the office. We discussed follow-up care and the need for regular monitoring of her conditions. Assessment and Plan 1. Asthma - Continue Pulmocort and levothylbuterol. - Trial anticholinergic, Atrovent w/ aerochamber, if effective could switch to a QD anticholinergic, like Spiriva. Send portal message in a few weeks to let me know how it is working. 2. Seizure Disorder - Continue phenytoin. - Neurology care 3. GERD - Continue omeprazole. 4. Hyperlipidemia - Continue simvastatin. 5. Essential Hypertension - Continue metoprolol. 6. Vaginal Atrophy - Continue estradiol & care w/ HELP DESK ADMINISTRATOR 7. Allergic Rhinitis - Azesteline nasal spray - Continue Claritin as needed. 8. Overactive Bladder - Cont Gemtesa pending prior authorization. 9. Depression - Continue paroxetine. - Counseling cont. . Patient Instructions - Continue all current medications as prescribed. - Monitor symptoms and report any changes. - Use the patient portal for communication with the office. - Follow up with care team as scheduled - Schedule your bone density scan and mammogram together. - Use the Atrovent inhaler as an add-on to your asthma treatment. - Consider wearing a mask in crowded areas to protect respiratory health. - Report back on the effectiveness of the Atrovent inhaler in two to three weeks. RTO July with labs routine fu, sooner PRN Consent Patient was informed and verbally consented to the use of an ambient scribe for clinic note documentation during this visit. An additional 15 minutes was spent addressing the problem(s) noted at todays visit. This includes time spent before the visit reviewing the chart, time spent during the visit, and time spent after the visit on documentation reviewing laboratory results, diagnostic imaging, medications, performing a medically necessary evaluation, counseling on diagnoses, care coordination, ordering appropriate tests, ordering appropriate medications, review of tests performed by other providers, reporting test results with the patient, communication with other healthcare providers. [facility] Medical History (Updated 01/21/25 @ 09:02 by TIARA Hall-NANCY) Abnormal involuntary movements Anxiety Arthritis Asthma Cerebral palsy Epilepsy GERD (gastroesophageal reflux disease) High cholesterol Hypersomnia Incontinence Neck pain Seizure Sinusitis Snoring Surgical History (Updated 01/21/25 @ 09:03 by KAREN Hall) History of bladder surgery (~2017) History of colonoscopy (~11/2024) Family History Sister Asthma HTN (hypertension) Brother Asthma HTN (hypertension) Prostate cancer Mother HTN (hypertension) Cardiovascular disease Colon cancer Father HTN (hypertension) Cardiovascular disease Maternal Grandmother HTN (hypertension) Cardiovascular disease Paternal Grandfather HTN (hypertension) Cardiovascular disease Prostate cancer Maternal Grandfather HTN (hypertension) Cardiovascular disease Paternal Grandmother HTN (hypertension) Cardiovascular disease Social History Household Members: None Both parents involved: No Caregiver staying overnight: No Housing: House Are you a primary transitions rn care coordinator to a significant other at home: No Do you presently have visiting nurse or other home services: No 75 years or older and lives alone: No Alcohol intake: never Patient Tobacco Use Status: Never used Tobacco e-Cigarette/Vaping Use: Never Used Second Hand Smoke Exposure: No service: No Current occupational status: employed 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 1. Little interest or pleasure in doing things: not at all 2. Feeling down, depressed, or hopeless: not at all 3. Trouble falling or staying asleep, or sleeping too much: not at all 4. Feeling tired or having little energy: not at all 5. Poor appetite or overeating: not at all 6. Feeling bad about yourself - or that you are a failure or have let yourself or your family down: not at all 7. Trouble concentrating on things, such as reading the newspaper or watching television: not at all 8. Moving or speaking so slowly that other people could have noticed. Or the opposite - being so fidgety or restless that you have been moving around a lot more than usual: not at all 9. Thoughts that you would be better off or of hurting yourself in some way: not at all Total score: 0 Depression Screening Interpretation: Negative Depression Screening Done: Yes 79580 - PHQ-9 Billing: Yes Source: Developed by Drs. Shahzad Vargas, Sadie Richard, Rd Sullivan and colleagues, with an educational emmett from [employer]. Thrive Questionnaire Date Thrive assessed: 01/21/25 I am a: Patient What is your living situation today?: I have a steady place to live Within the past 12 months, did the food you bought not last and you didn't have the money to get more?: Never true Within the past 12 months, did you worry whether your food would run out before you got money to buy more?: Never true Do you have trouble paying for medicines?: No Do you have trouble getting transportation to medical appointments?: No Do you have trouble paying your heating and electricity bill?: No Do you have trouble taking care of your child, family member or friend?: No Do you have trouble with day-to-day activities such as bathing, preparing meals, shopping, managing finances, etc.?: No Are you currently unemployed and looking for a job?: No Are you interested in more education?: No Please select the resources that you would like help with: None Currently or been in a relationship where the following occur: No concerns reported THRIVE Score: 0 AUDIT C Alcohol Use Questionnaire (AUDIT-C) 1. How often do you have a drink containing alcohol?: Never 2. How many drinks containing alcohol do you have on a typical day when you are drinking?: 1 or 2 3. How often do you have six or more drinks on one occasion?: Never Total Score: 0 Score Reviewed/Action Taken: Yes EMIR-7 AMB Questionnaire EMIR-7 Date EMIR - 7 assessed: 01/21/25 Feeling nervous, anxious, or on edge: 0 = Not at all Not being able to stop or control worryin = Not at all Worrying too much about different things: 0 = Not at all Trouble relaxin = Not at all Being so restless that it is hard to sit still: 0 = Not at all Becoming easily annoyed or irritable: 0 = Not at all Feeling afraid as if something awful might happen: 0 = Not at all Total EMIR-7 score (0-4 normal; 5-9 mild; 10-14 moderate; 15-21 severe): 0 Source: Developed by Drs. Shahzad Vargas, Sadie Richard, Rd Sullivan and colleagues, with an educational emmett from [employer]. EMIR-7 Assessment Billing EMIR-7 Assessment Tool: EMIR-7 Assessment 06655 ACT Questionnaire In the past 4 weeks, how much of the time did your asthma keep you from getting as much done at work, school or at home?: None of the time During the past 4 weeks, how often have you had shortness of breath?: Not at all During the past 4 weeks, how often did your asthma symptoms wake you up at night or earlier than usual in the morning?: Once or twice per week During the past 4 weeks, how often have you had to use your rescue inhaler or nebulizer medication?: Once a week or less How would you rate your asthma control during the past 4 weeks?: Well controlled ACT Interpretation: Negative Score: 22 Physical exam (Primary Care) Vital Signs: Last Vital Signs Temp 97.1 F 01/21/25 07:57 Pulse 65 01/21/25 07:57 Resp 12 01/21/25 07:57 BP 124/70 01/21/25 07:57 Pulse Ox 97 01/21/25 07:57 Oxygen Delivery Method Room Air 01/21/25 07:57 BMI result Body Mass Index 22.9 Tobacco/Smoking Status: Tobacco use Status Tobacco use date assessed 01/21/25 01/21/25 07:55 Patient Tobacco Use Status Never used Tobacco 01/21/25 07:55 e-Cigarette/Vaping Use Never Used 01/21/25 07:55 PHQ-9: PHQ-9 Score PHQ-9: Total score 0 01/21/25 07:55 Depression Screening Interpretation: Negative Thrive Assessment: Date of Thrive Assessment Date Thrive assessed 01/21/25 01/21/25 07:55 Currently or been in a relationship where the following occur: No concerns reported Results Reviewed Results Reviewed: 01/12/2025 Laboratory Result Units Range Interpretation Provider Comments White Blood Count 4.3 X10*3/uL (4.8-10.8) Low Red Blood Count 4.34 X10*6/uL (4.20-5.50) Hemoglobin 12.8 g/dl (12.0-16.0) Hematocrit 39.4 % (37.0-47.0) Mean Corpuscular Volume 90.8 fL (80.0-98.0) Mean Corpuscular Hemoglobin 29.5 pg (27.0-33.0) Mean Corpuscular Hemoglobin Concent 32.5 g/dl (31.0-35.0) Red Cell Distribution Width 12.0 % (11.0-16.0) Platelet Count 225 X10*3/uL (160-400) Mean Platelet Volume 10.1 fL (9.4-12.3) Nucleated RBC Absolute Count (auto) 0.000 X10*3/uL (0.0-0.012) Nucleated Red Blood Cells % (auto) 0.0 /100WBC (0.0-0.2) Sodium Level 142 mmol/L (135-145) Potassium Level 4.3 mmol/L (3.3-5.1) Chloride Level 105 mmol/L (96-108) Carbon Dioxide Level 31 mmol/L (22-29) High Anion Gap 10 (12-20) Low Blood Urea Nitrogen 13 mg/dL (9-16) Creatinine 0.63 mg/dL (0.5-1.4) Estimated Creatinine Clearance Calc Not Reportable Estimat Glomerular Filtration Rate > 60 Random Glucose 83 mg/dL (60-115) Estimated Average Glucose 108 mg/dL Hemoglobin A1c Percent 5.4 % (<6.0) Calcium Level 9.3 mg/dL (8.4-10.2) Total Bilirubin 0.3 mg/dL (0.0-1.0) Aspartate Amino Transf (AST/SGOT) 29 U/L (5-31) Alanine Aminotransferase (ALT/SGPT) 21 U/L (0-31) Alkaline Phosphatase 80 U/L (39-117) Total Protein 7.2 g/dL (6.5-8.0) Albumin 4.6 g/dL (3.5-5.0) Triglycerides Level 71 mg/dL (<150) Cholesterol Level 188 mg/dL (<200) LDL Cholesterol, Calculated 113 mg/dL (<100) High HDL Cholesterol 61 mg/dL (>40) Vitamin B12 Level 410 pg/mL (200-900) 25-Hydroxy Vitamin D Total 57.6 ng/mL (>30) Folate 9.4 ng/mL (> or = 4.0) Thyroid Stimulating Hormone (TSH) 1.95 uIU/mL (0.32-4.0) Laboratory Result Units Range Interpretation Provider Comments Urine Creatinine 44.06 mg/dL Urine Microalbumin < 5.0 mg/L Urine Microalbumin/Creatinine Ratio TNP Coding Level of Care Code Est Pt Level 2 (53572) Est Pt Prev Care 40-64y(80456) Diagnoses Encounter for general adult medical examination without abnormal findings Z00.00 Menopause Z78.0 EMIR (generalized anxiety disorder) F41.1 Primary hypertension I10 Hypertension type: primary hypertension Mixed hyperlipidemia E78.2 Hyperlipidemia type: mixed hyperlipidemia Prediabetes R73.03 Seasonal allergies J30.2 Chronic GERD K21.9 Mixed stress and urge urinary incontinence N39.46 Urinary Incontinence type: mixed stress and urge incontinence OAB (overactive bladder) N32.81 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 Cerebral palsy type: athetoid Seizure disorder G40.909 Mild intermittent asthma in adult without complication J45.20 Additional Codes EMIR-7 Assessment Billing - EMIR-7 Assessment Tool: EIMR-7 Assessment 91340 ([id number]) PHQ-9 - 22043 - PHQ-9 Billing: Yes ([id number]) Asthma Control Questionnaire - ACT Interpretation: Negative ([id number]) Assessment & Plan Assessment & Plan (1) Encounter for general adult medical examination without abnormal findings: Onset Date: ~01/21/25 Code(s): Z00.00 - Encounter for general adult medical examination without abnormal findings Category: Medical (2) Menopause: Code(s): Z78.0 - Asymptomatic menopausal state Category: Medical (3) EMIR (generalized anxiety disorder): Code(s): F41.1 - Generalized anxiety disorder Category: Medical (4) HTN (hypertension): Code(s): I10 - Essential (primary) hypertension Category: Medical Qualifiers: Hypertension type: primary hypertension Qualified Code(s): I10 - Essential (primary) hypertension (5) HLD (hyperlipidemia): Code(s): E78.5 - Hyperlipidemia, unspecified Category: Medical Qualifiers: Hyperlipidemia type: mixed hyperlipidemia Qualified Code(s): E78.2 - Mixed hyperlipidemia (6) Prediabetes: Code(s): R73.03 - Prediabetes Category: Medical (7) Seasonal allergies: Code(s): J30.2 - Other seasonal allergic rhinitis Category: Medical (8) Chronic GERD: Code(s): K21.9 - Gastro-esophageal reflux disease without esophagitis Category: Medical (9) Urinary incontinence: Code(s): R32 - Unspecified urinary incontinence Category: Medical Qualifiers: Urinary Incontinence type: mixed stress and urge incontinence Qualified Code(s): N39.46 - Mixed incontinence (10) OAB (overactive bladder): Code(s): N32.81 - Overactive bladder Category: Medical (11) Cerebral palsy: Code(s): G80.9 - Cerebral palsy, unspecified Category: Medical Qualifiers: Cerebral palsy type: athetoid Qualified Code(s): G80.3 - Athetoid cerebral palsy (12) Seizure disorder: Comment: last sz in 1959's Code(s): G40.909 - Epilepsy, unspecified, not intractable, without status epilepticus Category: Medical (13) Mild intermittent asthma in adult without complication: Comment: PFT 2023 Code(s): J45.20 - Mild intermittent asthma, uncomplicated Category: Medical Plan . Orders: Orders XR DEXA axial skeleton Today Z13.820 - Encounter for screening for osteoporosis, Z78.0 - Asymptomatic menopausal state Medications: New inhalational spacing device (Aerochamber MV spacer) This is medically necessary given her Cerebral palsy; use with Atorvent QID 1 ea 0RF ipratropium bromide 17 mcg/actuation (Atrovent HFA) 2 puffs inhalation QID 12.9 grams 0RF Changed From estradiol 0.01%(0.1mg/gram) vaginal To estradiol 0.01%(0.1mg/gram) 1 g vaginal QWEEK 42.5 grams 12RF Patient Instructions: Health screenings for women You should visit your health care provider from time to time, even if you are healthy. The purpose of these visits is to: Screen for medical issues Assess your risk for future medical problems Encourage a healthy lifestyle Update vaccinations and other preventive care services Help you get to know your provider in case of an illness Information Even if you feel fine, you should still see your provider for regular checkups. These visits can help you avoid problems in the future. For example, the only way to find out if you have high blood pressure is to have it checked regularly. High blood sugar and high cholesterol levels also may not have any symptoms in the early stages. A simple blood test can check for these conditions. There are specific times when you should see your provider or receive specific health screenings. The [place] Preventive Services Task Force publishes a list of recommended screenings. Below are screening guidelines for women ages 18 to 39. BLOOD PRESSURE SCREENING Your blood pressure should be checked at least once every 3 to 5 years if: Your blood pressure is in the normal range (top number less than 120 mm Hg and bottom number less than 80 mm Hg) You don't have risk factors for high blood pressure Ask your provider if you need your blood pressure checked more often if: The top number is 120 to 129 mm Hg or the bottom number is 70 to 79 mm Hg You have diabetes, heart disease, kidney problems, are overweight, or have certain other health conditions You have a first-degree relative with high blood pressure You are Black You had high blood pressure during a If the top number is 130 mm Hg or greater or the bottom number is 80 mm Hg or greater, this is considered stage 1 hypertension. Schedule an appointment with your provider to learn how you can reduce your blood pressure. Watch for blood pressure screenings in your area. Ask your provider if you can stop in to have your blood pressure checked. BREAST CANCER SCREENING Experts do not agree about the benefits of breast self-exams in finding breast cancer or saving lives. Talk to your provider about what is best for you. A screening mammogram is not recommended for most women under age 40. Your provider may discuss and recommend mammograms, MRI scans, or ultrasounds if you have an increased risk for breast cancer, such as: A mother or sister who had breast cancer at a young age (most often starting screening earlier than the age the close relative was diagnosed) You carry a high-risk genetic marker CERVICAL CANCER SCREENING Cervical cancer screening should start at age 21 years unless your provider advises otherwise. After the first test: Women ages 21 through 29 should have a Pap test every 3 years. Exoprts do not agree on whether HPV testing is recommended for this age group. Women ages 30 through 65 should be screened with either a Pap test every 3 years or the HPV test every 5 years or both tests every 5 years (called cotesting ). Women who have been treated for precancer (cervical dysplasia) should continue to have Pap tests for 20 years after treatment or until age 65, whichever is longer. If you have had your uterus and cervix removed (total hysterectomy), and you have not been diagnosed with cervical cancer or precancer (high grade cervical neoplasia), you do not need cervical cancer screening. CHOLESTEROL SCREENING Cholesterol screening should begin at: Age 45 for women with no known risk factors for coronary heart disease Age 20 for women with known risk factors for coronary heart disease Repeat cholesterol screening should take place: Every 5 years for women with normal cholesterol levels More often if changes occur in lifestyle (including weight gain and diet) More often if you have diabetes, heart disease, kidney problems, or certain other conditions DIABETES SCREENING You should be screened for diabetes starting at age 35 and then repeated every 3 years if you have no risk factors for diabetes. Screening may need to start earlier and be repeated more often if you have other risk factors for diabetes, such as: You have a first degree relative with diabetes. You are overweight or have obesity. You have high blood pressure, prediabetes, or a history of heart disease. Screening for diabetes should be done if you are planning to become and you are overweight and have other risk factors such as high blood pressure. DENTAL EXAM Go to the dentist once or twice every year for an exam and cleaning. Your dentist will evaluate if you need more frequent visits. EYE EXAM Have an eye exam every 5 to 10 years before age 40. If you have vision problems, have an eye exam every 2 years or more often if recommended by your provider. You should have an eye exam that includes an examination of your retina (back of your eye) at least every year if you have diabetes. IMMUNIZATIONS Commonly needed vaccines include: Flu shot: get one every year. COVID-19 vaccine: ask your provider what is best for you. Tetanus-diphtheria and acellular pertussis (Tdap) vaccine: have one at or after age 19 as one of your tetanus-diphtheria vaccines if you did not receive it as an adolescent. Tetanus-diphtheria: have a booster (or Tdap) every 10 years. Varicella vaccine: receive 2 doses if you never had chickenpox or the varicella vaccine. Hepatitis B vaccine: receive 2, 3, or 4 doses, depending on your exact circumstances. Measles, mumps, and rubella (MMR) vaccine: receive 1 to 2 doses if you are not already immune to MMR. Your provider can tell you if you are immune. Ask your provider about the human papillomavirus (HPV) vaccine if: You have not received the HPV vaccine in the past You have not completed the full vaccine series (you should catch up on this shot) Ask your provider if you should receive other immunizations if you have certain health problems that increase your risk for some diseases such as pneumonia. INFECTIOUS DISEASE SCREENING Women who are sexually active should be screened for chlamydia and gonorrhea up until age 25. Women 25 years and older should be screened for chlamydia and gonorrhea if at high risk. Screening for hepatitis C: All adults ages 18 to 79 should get a one-time test for hepatitis C. people should be screened at every . Screening for human immunodeficiency virus (HIV): All people ages 15 to 65 should get a one-time test for HIV. Depending on your lifestyle and medical history, you may also need to be screened for infections such as syphilis and HIV, as well as other infections. PHYSICAL EXAM All adults should visit their provider from time to time, even if they are healthy. The purpose of these visits is to: Screen for disease Assess your risk of future medical problems Encourage a healthy lifestyle Update your vaccinations and other preventive care services Maintain a relationship with a provider in case of an illness Your height, weight, and BMI should be checked at every exam. During your exam, your provider may ask you about: Depression and anxiety Diet and exercise Alcohol and tobacco use Safety issues, such as using seat belts, smoke detectors, and intimate partner violence Your medicines and risk for interactions SKIN SELF-EXAM Your provider may check your skin for signs of skin cancer, especially if you're at high risk, such as if you: Have had skin cancer before Have close relatives with skin cancer Have a weakened immune system OTHER SCREENING Talk with your provider about colon cancer screening if you have a strong family history of colon cancer or polyps, or if you have had inflammatory bowel disease or polyps yourself. Routine bone density screening of women under 40 is not recommended.
[2025-01-21 07:57] VITALS: BP 124/70; PULSE 65; RESP 12; TEMP 36.2; O2SAT 97; BMI 22.9
== END 2025-01-21 08:49 | disposition home or self-care (01) ==
LOC: HO.HMCFM 07:48
PROVIDERS: PCP Nurse Practitioner Family; Visit Provider Nurse Practitioner Family
DX: Z00.00 Encounter for general adult medical examination without abnormal findings (principal); G80.3 Athetoid cerebral palsy; G40.909 Epilepsy, unspecified, not intractable, without status epilepticus; Z78.0 Asymptomatic menopausal state; F41.1 Generalized anxiety disorder; I10 Essential (primary) hypertension; E78.2 Mixed hyperlipidemia; R73.03 Prediabetes; J30.2 Other seasonal allergic rhinitis; K21.9 Gastro-esophageal reflux disease without esophagitis; N39.46 Mixed incontinence; N32.81 Overactive bladder

== ENCOUNTER → 2025-01-21 07:47 | Outpatient (BNVA) | payer OTHER, SELFPAY | PROVIDERS: PCP Nurse Practitioner Family; Visit Provider Nurse Practitioner Family | DX: Z00.00 Encounter for general adult medical examination without abnormal findings (principal); R73.03 Prediabetes; F41.1 Generalized anxiety disorder; J45.20 Mild intermittent asthma, uncomplicated; K21.9 Gastro-esophageal reflux disease without esophagitis; E78.5 Hyperlipidemia, unspecified; I10 Essential (primary) hypertension; N32.81 Overactive bladder; I44.7 Left bundle-branch block, unspecified; G40.909 Epilepsy, unspecified, not intractable, without status epilepticus; N95.2 Postmenopausal atrophic vaginitis; F32.A Depression, unspecified; E78.2 Mixed hyperlipidemia; J30.2 Other seasonal allergic rhinitis; N39.46 Mixed incontinence; G80.3 Athetoid cerebral palsy | CPT/HCPCS: 96127; 96160 ==

== ENCOUNTER 2025-01-22 12:50 | Outpatient (RCR) | payer OTHER, SELFPAY ==
--- NOTE | 2024-12-18 15:36 | MHC.OT.EP ---
[address] [phone] Occupational Therapy Plan of Care Patient Name: Maury Weiss Date of Evaluation: 12/18/24 Diagnosis: Cerebral palsy with abnormal involuntary movements Pain Location: Neck pain 5/10 Hand pain: none reported Pain Score: 5 Aggravating Factors: Prolonged computer work and sitting (neck pain) Heavy lifting, gardening Alleviating Factors: Heat, rest, hot shower Assessment: Maury is a 59y/o female with diagnosis of cerebral palsy referred to OT for improving hand function and coordination. Pt reports CP affecting her motor skills, feels as though the R UE has increased tone more recently. She is having difficulty opening jars, performing bi-manual tasks, and notes the digits of the right hand cross making fine motor tasks difficult. Pt would benefit from skilled OT to address noted barriers and maximize functional IND. 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 Thank you once again for your referral.
== END 2025-01-22 14:02 | disposition home or self-care (01) ==
LOC: HO.OTS 12:50
PROVIDERS: Visit Provider Internal Medicine Rheumatology
DX: G80.3 Athetoid cerebral palsy (principal); R25.9 Unspecified abnormal involuntary movements
CPT/HCPCS: 97110; 97166; 97530

== ENCOUNTER 2025-01-28 12:49 | Outpatient (REF) | payer OTHER, SELFPAY ==
--- NOTE | 2025-01-28 12:54 | EEG_ITS ---
Reason: Epilepsy History:59 y/o F with paraesophageal hernia, prediabetes (a1c 5.7% 06/2024), leukopenia chronic, EMIR, colon polyps, dermatitis, Asthma, Seizure Disorder, GERD, Hyperlipidem, Hypertension, Vaginal Atrophy, Allergic Rhinitis, Overactive Bladder, depression Medication List: azelastine, budesonide, estradiol, evalbuterol tartrate, metoprolol succinate, omeprazole, paroxetine, phenytoin, simvastatin, trospium, vibegron (Gemtesa) Technical description Photic stimulation: completed Hyperventilation: not completed Behavioral state: cooperative Skull defect: no Sedation: no Handedness: Left Description: This is a 16 channel EEG with an EKG lead. Patient is awake during the tracing. Background EEG rhythm is 7-8 hertz 5-50 microvolt posteriorly and lower amplitude fast anteriorly. Some lead and muscle artifacts are noted. Photic stimulation does not produce any significant abnormality. Hyperventilation is not performed. Cardiac lead does not reveal any significant abnormality. No sharp wave spikes or paroxysmal tendency noted. Impression: Mild slowing with no epileptic discharges. MTDD
== END 2025-01-28 12:50 | disposition home or self-care (01) ==
LOC: HO.NEURO 12:49
PROVIDERS: PCP Nurse Practitioner Family; Visit Provider Psychiatry & Neurology Neurology
DX: G40.909 Epilepsy, unspecified, not intractable, without status epilepticus (principal)
CPT/HCPCS: 95816

== ENCOUNTER → 2025-01-28 12:54 | Outpatient (BNV) | payer OTHER, SELFPAY | PROVIDERS: PCP Nurse Practitioner Family; Visit Provider Psychiatry & Neurology Neurology | DX: G40.909 Epilepsy, unspecified, not intractable, without status epilepticus (principal) | CPT/HCPCS: 95816 ==

== ENCOUNTER 2025-03-23 08:08 | Outpatient (RCR) | payer OTHER, SELFPAY ==
--- NOTE | 2025-01-29 15:40 | MHC.PT.EP ---
[facility] [place] Office [place] Office [place] Office [address] Donna Alvarez [address] [phone] F: [phone] F: [phone] F: [phone] F: [phone] Physical Therapy Plan of Care Date of Evaluation: 01/29/25 Date of Surgery: Diagnosis: Neck pain M54.2 Cervicalgia, signed by Dr. Reyna 11/24/24 Assessment: Pt is a LHD 59 y/o female, referred to PT for treatment of NECK Pain following chronic history of neck pain from Dr. La. Pt has has past PT >5 years ago with good outcomes. PMH includes epilepsy but nots has not had a seizure since the age of 1, Abnormal involuntary movements Hypersomnia Snoring Neck pain Cerebral palsy Anxiety Epilepsy Seizure Incontinence GERD (gastroesophageal reflux disease) High cholesterol Arthritis Sinusitis Asthma History of bladder surgery (~2017) History of colonoscopy (~2023) Pt will benefit from receiving manual therapy, stretching program and HEP/postural education to address musculoskeletal sx. Pt rated pain as 5-6/10, notes pain is worse on her L>R side. Pt denies radiating sx such as numbness/tingling. Barriers for recovery include current home based seated office set-up in recliner chair (plan to educate to change this), history of CP, and chronicity of sx. She exhibits excellent motivation for PT. Frequency and Duration: The patient will be seen 2x/week x 6 weeks Short Term Goals: 1. Initiate self care/HEP program. 2. Pt will demonstrate L cervical rotation 60 degrees. 3. Pt will express improvement in NDI score. 4. Pt will demonstrate L SB improvement by 5 degrees. 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 I home program/ MOD I for self care management. 2. Pt will demonstrates reduction in L sided neck pain by 50%. 3. Improve strength of postural stabilizers/posterior RTC. 4. Pt will demonstrate L cervical rotation to 70 degrees. 5. Overall I with flexibility program. Treatment Plan: Modalities to reduce pain, spasms and effusion. Manual therapy to restore motion and function. Therapeutic exercise to improve strength and flexibility. Neuromuscular re-education for posture and balance. Therapeutic activities to return to functional activities of daily living. Electronically signed by: Sarah Rosenthal PT, DPT Please sign and return to therapist. Thank you for your referral.
== END 2025-04-16 12:59 | disposition home or self-care (01) ==
LOC: HO.PTS 08:08
PROVIDERS: Visit Provider Psychiatry & Neurology Neurology
DX: M54.2 Cervicalgia (principal)
CPT/HCPCS: 97110; 97140; 97161

== ENCOUNTER 2025-04-03 09:35 | Outpatient (REF) | payer OTHER, SELFPAY ==
--- NOTE | ~2025-04-03 | MM_ITS ---
EXAMINATION: MM SCREENING DIGITAL BREAST TOMOSYNTHESIS, BILATERAL CLINICAL INFORMATION: Screening. Asymptomatic. COMPARISON: Mammography: Comparison is made with available priors TECHNIQUE: Digital breast mammography with tomosynthesis is performed in both the craniocaudal and mediolateral oblique views along with computer-aided detection (CAD). FINDINGS: The breasts are heterogeneously dense, which may obscure small masses. There are no significant masses, abnormal calcifications, or other abnormalities. MM/MM tomosynthesis screening BI IMPRESSION: No mammographic evidence of malignancy. ASSESSMENT: BI-RADS Category 1: Negative RECOMMENDATION: Routine annual mammography screening. 1 year F/U This examination should not preclude the clinical evaluation of a suspicious palpable abnormality. This patient's information was entered into a reminder system with a target due date for their next mammogram. Electronically signed by: Shannan Paez DO 04/07/2025 10:23 AM [facility]
--- OUTSIDE RECORDS SUMMARY | 2025-04-03 10:57 | XMS_ITS | Patient Health Record ---
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 Primary Care Provider Jb montanaShelley Ordaz Unavailable [phone] Allergies No Known Allergies Results Component Value Reference Range Notes PDF Report Reviewed date:03/23/2025 12:51:48 PM Interpretation: Performing Lab:[facility], [address], [employer], Phone - [phone], [facility] Notes/Report: Clinical Information:Vaginal/Cervical, LMP: Men o 08/2012 Source.............Cervix;Vagina Dates / Results....02/20/22 NIL, Neg HPV DI 08/2012 Other..............Post Menopausal No. of containers..01 ThinPrep Vial [id number] IGP No Culture 30 Plus Reviewed date:03/23/2025 12:52:01 PM Interpretation: Performing Lab:[facility], [address], [address], [employer], Phone - [phone], [facility] Notes/Report: Clinical Information:Vaginal/Cervical, LMP: Men o 08/2012 Source.............Cervix;Vagina Dates / Results....02/20/22 NIL, Neg HPV DI 08/2012 Other..............Post Menopausal No. of containers..01 ThinPrep Vial DIAGNOSIS: NEGATIVE FOR IN TRAEPITHELIAL LESION OR MALIGNANCY. Specimen adequacy: Satisfact ory for evaluation. No endocervical component is identified. Clinician provided ICD10: Z01.419 Z11.51 Performed by: Gold allred, Animal K[employer] ([facility]) . . Note: The Pap smear is a screening test designed to aid in the detection of premalignant and malignant conditions of the uterine cervix. It is not a diagnostic procedure and should not be used as the sole means of detecting cervical cancer. Both false-positive and false-negative reports do occur. . Test Methodology: This liquid based ThinPrep(R) pap test was screened with the use of an image guided system. HPV Aptima Negative Negative This nucleic acid amplification test detects fourteen high-risk HPV types (16,18,31,33,35,39,45,51,52,56,5 8,59,66,68) without differentiation. HPV Genotype Reflex Criteria not met, HPV Genotype not performed. Reason For Referral No Information Medications Medication SIG (Take, Route, Frequency, Duration) Notes Start Date End Date Status Gemtesa 75 MG Oral; Duration: 30 Days Active Estradiol 0.01 % Vaginal; Duration: 9 0 Days Active Estradiol Vaginal Cream 0.01% 1 Gram to the affected area Vaginal/Vulva Twice a week; Duration: 90 Days 03/18/2025 Active Metoprolol Succinate ER 25 MG Oral; Duration: 30 Days Acti ve Simvastatin 20 MG Oral; Duration: 30 Days Active PARoxetine HCl 20 MG Oral; Duration: 30 Days Active Omeprazole 40 MG Oral; Duration: 30 Days Active Social History Tobacco Use: Social History Observation Description Date Details (start date - stop date) Former Smoker NA - NA Sexual History Question Answer Notes Had sex in the past 12 months (vaginal, oral, or anal)? No Have you ever had a Sexually transmitted disease ? No AUDIT-C (Standard) Question Answer Notes Did you have a drink containing alcohol in the p ast year? No Points 0 Interpretation Negative Tobacco Control (Standard) Question Answer Notes Tobacco use: Former smoker How long has it been since you last smoked? Grea ter than 10 years Problems Problem Type SNOMED Code ICD Code Onset Dates Problem Status W/U Status Risk Notes Problem Postmenopausal atrophic vaginitis (83184920) Postmenopausal atrophic vaginitis (N95.2) Active confirmed Problem Essential hypertension (08775111) Essential (primary) hypertension (I10) Active confirmed Problem Epilepsy (66952931) Epilepsy, unspecified, not intractable, without status epilepticus (G40.909) Active confirmed Problem Osteoarthritis (851541075) Unspecified osteoarthritis, unspecified site (M19.90) Active confirmed Vital Signs Temperature 97.8 degrees Fahrenheit 03/18/2025 Blood pressure diastolic 82 mm Hg 03/18/2025 Height 61 in 03/18/2025 Blood pressure systolic 114 mm Hg 03/18/2025 Weight 118 lbs 03/18/2025 BMI 22.29 kg/m2 03/18/2025 Encounters Encounter Location Date Provider Diagnosis [facility] [address] [place] [address] 03/18/2025 Shelley Quezada Encounter for screening for human papillomavirus (HPV) Z11.51 ; Encounter for screening mammogram for malignant neoplasm of breast Z12.31 ; Encounter for screening for osteoporosis Z13.820 ; Postmenopausal atrophic vaginitis N95.2 and Encounter for gynecological examination (general) (routine) without abnormal findings Z01.419 Assessments Encounter Date Diagnosis (ICD Code) Assessment Notes Treatment Notes Treatment Clinical Notes Section Notes 03/18/2025 Encounter for screening for human papillomavirus (HPV) (ICD-10 - Z11.51) HPV TYPING WAS ORDERED WITH PAP TEST. 03/18/2025 Encounter for screening mammogram for malignant neoplasm of breast (ICD-10 - Z12.31) REGULAR MAMMOGRAMS AND SBE'S WERE RECOMMENDED. 03/18/2025 Encounter for screening for osteoporosis (ICD-10 - Z13.820) BONE DENSITY WAS ORDERED. PAT IS SLIGHT OF BUILD AND IS AND POSTMENOPAUSAL . ADEQUATE CALCIUM AND VIT D. WEIGHT BEARING EXERCISES. 03/18/2025 Postmenopausal atrophic vaginitis (ICD-10 - N95.2) CONTINUE ESTRADIOL CREAM. 03/18/2025 Encounter for gynecological examination (general) (routine) without abnormal findings (ICD-10 - Z01.419) PAP TEST WAS OBTAINED. Plan Of Treatment Pending Test Test Name Order Date MAMMOGRAM, SCREENING 03/18/2025 Urinalysis 03/18/2025 BONE DENSITY 03/18/2025 MM Digital Mammo Screening 03/18/2025 Next Appt Details Provider Name:Shelley rodriguez, 05/01/2025 01:00:00 PM, [address], [place], [address], Provider Name:Shelley rodriguez, 03/31/2026 01:00:00 PM, [address], [place], [address], Insurance Providers Payer Name Payer Address Payer Phone Subscriber Number Group Number Insured Name Patient Relationship to Insured Coverage Start Date Coverage End Date [facility] [address] [place] [address] [phone] [id number] KELLY CORLEY Self - patient is the insured 5 Medical (General) History Medical History History ICD Code Polyp of colon K63.5 Other asthma J45.998 Essential (primary) hypertension I10 Unspecified osteoarthritis, unspecified site M19.90 Epilepsy, unspecified, not intractable, without status epilepticus G40.909 Surgical History Surgery Date(Month/Year) Bladder Surgery 2018 Colonoscopy Hospitalization History Reason Date(Month/Year) See Surgical Hx
== END 2025-04-03 09:36 | disposition home or self-care (01) ==
LOC: HO.MAMMO 09:35
PROVIDERS: PCP Nurse Practitioner Family; Visit Provider Nurse Practitioner Family
DX: Z12.31 Encounter for screening mammogram for malignant neoplasm of breast (principal)
CPT/HCPCS: 77063; 77067

== ENCOUNTER → 2025-04-03 09:45 | Outpatient (BNV) | payer OTHER, SELFPAY | PROVIDERS: PCP Nurse Practitioner Family; Visit Provider Internal Medicine | DX: Z12.31 Encounter for screening mammogram for malignant neoplasm of breast (principal) | CPT/HCPCS: 77063; 77067 ==

== ENCOUNTER 2025-04-13 09:52 | Outpatient (REF) | payer OTHER, SELFPAY ==
--- NOTE | ~2025-04-13 | MM_ITS ---
EXAMINATION: DXA BONE DENSITY AXIAL HISTORY: Z13.820 - Encounter for screening for osteoporosis TECHNIQUE: [email or web address] Dual energy absorptiometry (DEXA) of the lumbar spine, total left hip, and femoral neck was performed. COMPARISON: None FINDINGS: The bone mineral density of the lumbar spine (L1-L2) is 0.892 g/cm2, corresponding to a T-score of -2.3, and a Z-score of -0.6. This is indicative of osteopenia. The bone mineral density of the left total hip is 0.865 g/cm2, corresponding to a T-score of -1.1, and a Z-score of 0.1. This is indicative of osteopenia. The bone mineral density of the left femoral neck is 0.803 g/cm2, corresponding to a T-score of -1.7, and a Z-score of -0.2. This is indicative of osteopenia. FRACTURE RISK: The FRAX index suggests a ten year probability of major osteoporotic fracture of 8.6%, and of hip fracture 0.9%. MM/XR DEXA axial skeleton IMPRESSION: Based on bone mineral density, and according to World Health Organization (WHO) criteria, the diagnosis is consistent with osteopenia based on lowest T score of -2.3 in the spine.. Treatment Recommendations: NOF guidelines recommend consideration for treatment in postmenopausal women and men age 50 and older presenting with the following: -A hip or vertebral (clinical or morphometric) fracture. -T-score less than or equal to -2.5 at the femoral neck or spine after appropriate evaluation to exclude secondary causes. -Low bone mass at the hip or spine and a 10-year fracture probability by FRAX of greater than or equal to 3% for hip fracture or greater than or equal to 20% for major osteoporotic fracture based on the [place] adapted WHO algorithm. Other Recommendations: All treatment decisions require clinical judgment and consideration of individual patient factors, including patient preferences, comorbidities, previous drug use, risk factors not captured in the FRAX model (e.g. frailty, falls, vitamin D deficiency, increased bone turnover, interval significant decline in bone density) and possible under or overestimation of fracture risk by FRAX. Additional medical evaluation for secondary cause of low bone mineral density may be appropriate. FUTURE SCAN RECOMMENDATION: People with diagnosed cases of osteoporosis or at high risk for fracture should have regular bone mineral density tests. For patients eligible for Medicare, routine testing is allowed once every 2 years. The testing frequency can be increased to one year for patients who have rapidly progressing disease, those who are receiving or discontinuing medical therapy to restore bone mass, or have additional risk factors. Statistically, 68% of repeat scans fall within 1 SD (+/- 0.010 g/cm2 for AP spine L1-L4) and 1 SD (+/- 0.012 g/cm2 for femur total) FRAX is a trademark of the [employer]'s [place] for Metabolic Bone Disease, a World Health Organization (WHO) Collaborating Center. Electronically signed by: Rivka Rawls MD 04/14/2025 07:57 AM [facility]
== END 2025-04-13 09:53 | disposition home or self-care (01) ==
LOC: HO.MAMMO 09:52
PROVIDERS: PCP Nurse Practitioner Family; Visit Provider Nurse Practitioner Family
DX: Z13.820 Encounter for screening for osteoporosis (principal); Z78.0 Asymptomatic menopausal state
CPT/HCPCS: 77080

== ENCOUNTER → 2025-04-13 10:01 | Outpatient (BNV) | payer OTHER, SELFPAY | PROVIDERS: PCP Nurse Practitioner Family; Visit Provider Radiology Diagnostic Radiology | DX: E28.39 Other primary ovarian failure (principal) | CPT/HCPCS: 77080 ==